=== PATIENT | female | born 1975 | race Caucasian/White ===

== ENCOUNTER 2024-06-17 08:52 | Day surgery (SDC) | payer BC ==
[~2024-06-17 08:52] MED LIST: Sodium Chloride 0.9% 10 ML Syringe FLUSH PRN; Sodium Chloride 0.9% 2.5 ML Syringe FLUSH PRN; Sodium Chloride 0.9% 20 ML SDV IV PRN
[2024-06-17] MEDS: Lactated Ringers 1,000 ML IV SCH (09:29)
[2024-06-17] MEDS ORDERED: Propofol 200 MG/20 ML SDV ONE ×2 (09:37→10:10)
[2024-06-17] MEDS ORDERED: Lidocaine 2% 5 ML SDV ONE (09:37)
[2024-06-17] MEDS ORDERED: Glycopyrrolate 0.2 MG/ML SDV ONE (10:14)
[2024-06-17 10:54] VITALS: BP 108/64; PULSE 79
== END 2024-06-17 11:05 | disposition home or self-care (01) ==
LOC: MW.SDS 08:52
PROVIDERS: ATTEND Surgery
DX: Z12.11 Encounter for screening for malignant neoplasm of colon (principal); D12.5 Benign neoplasm of sigmoid colon; E03.9 Hypothyroidism, unspecified; Z79.899 Other long term (current) drug therapy; Z79.890 Hormone replacement therapy; Z88.8 Allergy status to other drugs, medicaments and biological substances
CPT/HCPCS: 45380; 81025; J2704; J3490; J7120; 00811